=== PATIENT | male | born 1965 | race Caucasian/White ===

== ENCOUNTER 2020-01-11 05:15 | Emergency (ER) | payer BC ==
[~2020-01-11] VITALS: Ht 185.4 cm; Wt 148.2 kg
[2020-01-11] MEDS ORDERED: MEDDOSEPAK PO (05:40)
[2020-01-11 06:36] VITALS: BP 145/70
== END 2020-01-11 06:36 | disposition home or self-care (01) | DRG 916 ==
LOC: ED 05:15
DX: T78.40XA Allergy, unspecified, initial encounter (principal); X58.XXXA Exposure to other specified factors, initial encounter

== ENCOUNTER 2020-01-25 12:25 | Emergency (ER) | payer BC ==
[~2020-01-25] VITALS: Ht 185.4 cm; Wt 145.0 kg
[~2020-01-25 12:25] MED LIST: MEDDOSEPAK PO
[2020-01-25] MEDS ORDERED: EPIPEN 2-P0.3 MG/0.3 SC (13:38)
[2020-01-25] MEDS ORDERED: MEDDOSEPAK PO (13:38)
[2020-01-25] MEDS ORDERED: BENADRYL 50MG C50 MG PO (13:38)
[2020-01-25] MEDS ORDERED: PEPCID20 MG PO (13:38)
[2020-01-25 14:09] VITALS: BP 134/74
== END 2020-01-25 14:05 | disposition home or self-care (01) | DRG 916 ==
LOC: ED 12:25
DX: T78.40XA Allergy, unspecified, initial encounter (principal); F17.200 Nicotine dependence, unspecified, uncomplicated; X58.XXXA Exposure to other specified factors, initial encounter

== ENCOUNTER 2020-01-26 05:42 | Emergency (ER) | payer BC ==
[~2020-01-26] VITALS: Ht 185.4 cm; Wt 145.0 kg
[~2020-01-26 05:42] MED LIST changes: +BENADRYL 50MG C50 MG PO; +EPIPEN 2-P0.3 MG/0.3 SC; +PEPCID20 MG PO
[2020-01-26 07:25] VITALS: BP 135/71
== END 2020-01-26 07:25 | disposition home or self-care (01) | DRG 607 ==
LOC: ED 05:42
DX: L50.0 Allergic urticaria (principal)

== ENCOUNTER 2023-02-27 11:58 | Inpatient (IN) | payer BC ==
[~2023-02-27] VITALS: Ht 185.4 cm; Wt 148.9 kg
[2023-02-27] VITALS (31 sets, daily range): BP systolic 90–140; BP diastolic 32–89
[~2023-02-27 11:58] MED LIST changes: +ALPRAZOLAM ER0.5 MG PO; +ASPIRIN81 MG PO; +HYDRALAZINE10 M2 PO; +LEVOCETIRIZINE D5 MG PO; +MULTIVITAMI9 PO
[2023-02-27 13:20] LABS: ALBUMIN 4.3 g/dL (3.2-5.0); ALKALINE PHOSPHATASE 73 u/l (38-126); ANION GAP 9 (6-22 (CALC)); BILIRUBIN, TOTAL 0.6 mg/dL (0.2-1.3); BUN 18 mg/dL (9-20); BUN/CREATININE RATIO 16 (12-20 (CALC)); CALCULATED LDLCHOLESTEROL 129 mg/dL (62-129 (CALC)); CARBON DIOXIDE 29 mmol/l (22-30); CHLORIDE 107 mmol/l (95-108); CREATININE 1.1 mg/dL (0.7-1.3); GFR FOR AFR.AMER. > 60 ML/MIN (>=60 (CALC)); GFR OTHER RACES > 60 ML/MIN (>=60 (CALC)); HDL CHOLESTEROL 27 mg/dL (39.0-59.0); POTASSIUM 4.3 mmol/l (3.5-5.1); SGOT/AST 32 u/l (17-59); SODIUM 140 mmol/l (137-146); TOTAL CHOLESTEROL 190 mg/dl (0-199); TOTAL PROTEIN 7.1 g/dL (6.3-8.2); TOTAL TRIGLYCERIDES 169 mg/dl (0-149); VLDL CHOLESTROL 34 mg/dl (8-62 (CALC))
[2023-02-27 13:23] LABS: BASO% 0.1 % (0-3); EOS% 1.3 % (0-8); HEMATOCRIT 43.6 % (39.0-50.0); HEMOGLOBIN 14.6 g/dl (14.0-18.0); IMMATURE GRANULOCYTES 0.1 % (0.0-5.0); LYMPH% 22.9 % (15-41); MEAN CELL VOLUME 91.2 fL CALC (80.0-100.0); MEAN CORPUSCULAR HGB 30.5 pG CALC (26.0-32.0); MEAN CORPUSCULAR HGB CONC 33.5 g/dL CAL (32.0-36.0); MONO% 7.5 % (2-13); NEUT# 5.24 thou/uL (1.82-7.42); NEUT% 68.1 % (42-76); RED BLOOD COUNT 4.78 mill/uL (4.70-6.10); RED CELL DISTRI WIDTH 12.3 % (11.5-15.5)
[2023-02-27] MEDS ORDERED: FAMOTIDINE20 M1 PO (14:56)
[2023-02-27 17:34] LABS: URINE BILIRUBIN - DIPSTICK Negative (NEGATIVE); URINE BLOOD DIPSTICK Negative (NEGATIVE); URINE GLUCOSE - DIPSTICK Negative (NEGATIVE); URINE KETONE Negative (NEGATIVE); URINE LEUK ESTERASE Negative (NEGATIVE); URINE NITRITE - DIPSTICK Negative (Negative); URINE PH 5.5 (4.5-8.0); URINE PROTEIN - DIPSTICK Negative (NEG-TRACE); URINE SPECIFIC GRAVITY 1.025; URINE UROBILINOGEN - DIPSTICK 0.2 E.U./dL (0.2)
[2023-02-27 17:35] LABS: URINE COLOR Yellow
[2023-02-28] VITALS (10 sets, daily range): BP systolic 55–123; BP diastolic 30–92
[2023-02-28 06:24] LABS: HEMATOCRIT 40.3 % (39.0-50.0); HEMOGLOBIN 13.4 g/dl (14.0-18.0); MEAN CELL VOLUME 93.5 fL CALC (80.0-100.0); MEAN CORPUSCULAR HGB 31.1 pG CALC (26.0-32.0); MEAN CORPUSCULAR HGB CONC 33.3 g/dL CAL (32.0-36.0); RED BLOOD COUNT 4.31 mill/uL (4.70-6.10); RED CELL DISTRI WIDTH 12.5 % (11.5-15.5)
[2023-02-28 06:42] LABS: ANION GAP 8 (6-22 (CALC)); BUN 16 mg/dL (9-20); BUN/CREATININE RATIO 16 (12-20 (CALC)); CALCULATED LDLCHOLESTEROL 91 mg/dL (62-129 (CALC)); CARBON DIOXIDE 28 mmol/l (22-30); CHLORIDE 106 mmol/l (95-108); CHOLESTEROL HDL RATIO 8.5 (<4.4 (CALC)); GFR FOR AFR.AMER. > 60 ML/MIN (>=60 (CALC)); GFR OTHER RACES > 60 ML/MIN (>=60 (CALC)); HDL CHOLESTEROL 18 mg/dL (39.0-59.0); MAGNESIUM 2.2 mg/dL (1.6-2.3); POTASSIUM 4.4 mmol/l (3.5-5.1); SODIUM 138 mmol/l (137-146); TOTAL CHOLESTEROL 156 mg/dl (0-199); TOTAL TRIGLYCERIDES 232 mg/dl (0-149); VLDL CHOLESTROL 46 mg/dl (8-62 (CALC))
[2023-02-28] MEDS ORDERED: XARELTO20 MG PO (11:07)
[2023-02-28] MEDS ORDERED: TOPROL XL25 M1 PO (11:13)
== END 2023-02-28 14:50 | disposition home or self-care (01) | DRG 309 ==
LOC: ED 11:58 → ED-I 12:53 → ED 15:54 → ICU 15:55
PROVIDERS: Nurse Practitioner; ADMIT Student in an Organized Health Care Education/Training Program; ATTEND Student in an Organized Health Care Education/Training Program
DX: I48.91 Unspecified atrial fibrillation (principal); G45.9 Transient cerebral ischemic attack, unspecified; I10 Essential (primary) hypertension; G47.33 Obstructive sleep apnea (adult) (pediatric); E66.9 Obesity, unspecified; Z79.82 Long term (current) use of aspirin
CPT/HCPCS: J1650; J2060

== ENCOUNTER 2023-03-03 10:52 | Emergency (ER) | payer BC ==
[2023-03-03] VITALS (8 sets, daily range): BP systolic 116–140; BP diastolic 62–124
[~2023-03-03] VITALS: Ht 185.4 cm; Wt 147.4 kg
[~2023-03-03 10:52] MED LIST changes: +FAMOTIDINE20 M1 PO; +TOPROL XL25 M1 PO; +XARELTO20 MG PO
[2023-03-03] MEDS ORDERED: XANAX0.5 MG PO (11:13)
[2023-03-03] MEDS ORDERED: HYDROXYZ HCL25 MG PO (11:13)
[2023-03-03 12:23] LABS: BASO% 0.2 % (0-3); EOS% 1.8 % (0-8); HEMATOCRIT 43.5 % (39.0-50.0); HEMOGLOBIN 14.5 g/dl (14.0-18.0); IMMATURE GRANULOCYTES 0.1 % (0.0-5.0); LYMPH% 20.7 % (15-41); MEAN CELL VOLUME 91.2 fL CALC (80.0-100.0); MEAN CORPUSCULAR HGB 30.4 pG CALC (26.0-32.0); MEAN CORPUSCULAR HGB CONC 33.3 g/dL CAL (32.0-36.0); MONO% 7.1 % (2-13); NEUT# 5.93 thou/uL (1.82-7.42); NEUT% 70.1 % (42-76); RED BLOOD COUNT 4.77 mill/uL (4.70-6.10); RED CELL DISTRI WIDTH 12.3 % (11.5-15.5)
[2023-03-03 12:27] LABS: INTERNATIONAL NORMALIZED RATIO 1.2 RATIO (0.7-1.3); PROTHROMBIN TIME 11.3 SECONDS (9.0-12.5)
[2023-03-03 12:29] LABS: ALBUMIN 4.1 g/dL (3.2-5.0); ALKALINE PHOSPHATASE 66 u/l (38-126); ANION GAP 9 (6-22 (CALC)); BILIRUBIN, TOTAL 0.6 mg/dL (0.2-1.3); BUN 15 mg/dL (9-20); BUN/CREATININE RATIO 14 (12-20 (CALC)); CARBON DIOXIDE 29 mmol/l (22-30); CHLORIDE 107 mmol/l (95-108); CREATININE 1.1 mg/dL (0.7-1.3); GFR FOR AFR.AMER. > 60 ML/MIN (>=60 (CALC)); GFR OTHER RACES > 60 ML/MIN (>=60 (CALC)); POTASSIUM 4.3 mmol/l (3.5-5.1); SGOT/AST 36 u/l (17-59); SODIUM 140 mmol/l (137-146); TOTAL PROTEIN 7.3 g/dL (6.3-8.2)
[2023-03-03 13:40] LABS: URINE BILIRUBIN - DIPSTICK Negative (NEGATIVE); URINE BLOOD DIPSTICK Negative (NEGATIVE); URINE COLOR Yellow; URINE GLUCOSE - DIPSTICK Negative (NEGATIVE); URINE KETONE Negative (NEGATIVE); URINE LEUK ESTERASE Negative (NEGATIVE); URINE NITRITE - DIPSTICK Negative (Negative); URINE PH 5.5 (4.5-8.0); URINE PROTEIN - DIPSTICK Negative (NEG-TRACE); URINE UROBILINOGEN - DIPSTICK 0.2 E.U./dL (0.2)
== END 2023-03-03 14:41 | disposition home or self-care (01) | DRG 149 ==
LOC: ED 10:52
PROVIDERS: Nurse Practitioner
DX: R42 Dizziness and giddiness (principal); I10 Essential (primary) hypertension; I48.91 Unspecified atrial fibrillation; Z86.73 Personal history of transient ischemic attack (TIA), and cerebral infarction without residual deficits; Z79.01 Long term (current) use of anticoagulants

== ENCOUNTER 2023-03-12 06:31 | Emergency (ER) | payer BC ==
[~2023-03-12] VITALS: Ht 185.4 cm; Wt 147.0 kg
[~2023-03-12 06:31] MED LIST changes: +HYDROXYZ HCL25 MG PO; +XANAX0.5 MG PO
[2023-03-12 06:42] VITALS: BP 129/96
[2023-03-12 07:11] LABS: BASO% 0.1 % (0-3); EOS% 1.4 % (0-8); HEMATOCRIT 45.1 % (39.0-50.0); IMMATURE GRANULOCYTES 0.1 % (0.0-5.0); LYMPH% 23.4 % (15-41); MEAN CELL VOLUME 92.2 fL CALC (80.0-100.0); MEAN CORPUSCULAR HGB 30.7 pG CALC (26.0-32.0); MEAN CORPUSCULAR HGB CONC 33.3 g/dL CAL (32.0-36.0); MONO% 8.1 % (2-13); NEUT# 4.93 thou/uL (1.82-7.42); NEUT% 66.9 % (42-76); RED BLOOD COUNT 4.89 mill/uL (4.70-6.10); RED CELL DISTRI WIDTH 12.2 % (11.5-15.5)
[2023-03-12 07:28] VITALS: BP 124/68
[2023-03-12 07:33] LABS: ALBUMIN 4.3 g/dL (3.2-5.0); ALKALINE PHOSPHATASE 70 u/l (38-126); ANION GAP 13 (6-22 (CALC)); BUN 22 mg/dL (9-20); BUN/CREATININE RATIO 19 (12-20 (CALC)); CARBON DIOXIDE 26 mmol/l (22-30); CHLORIDE 104 mmol/l (95-108); CREATININE 1.2 mg/dL (0.7-1.3); GFR FOR AFR.AMER. > 60 ML/MIN (>=60 (CALC)); GFR OTHER RACES > 60 ML/MIN (>=60 (CALC)); POTASSIUM 4.1 mmol/l (3.5-5.1); SGOT/AST 33 u/l (17-59); SODIUM 140 mmol/l (137-146); TOTAL PROTEIN 7.7 g/dL (6.3-8.2)
[2023-03-12 08:01] VITALS: BP 114/69
[2023-03-12 08:27] VITALS: BP 114/69
[2023-03-12] MEDS ORDERED: TOPROL XL25 M1 PO ×2 (08:35→08:37)
== END 2023-03-12 08:56 | disposition home or self-care (01) | DRG 310 ==
LOC: ED 06:31
PROVIDERS: Family Medicine
DX: I48.92 Unspecified atrial flutter (principal); I10 Essential (primary) hypertension; I48.91 Unspecified atrial fibrillation; G47.33 Obstructive sleep apnea (adult) (pediatric); Z79.01 Long term (current) use of anticoagulants

== ENCOUNTER 2024-03-09 21:29 | Observation (INO) | payer BC ==
[~2024-03-09] VITALS: Ht 185.4 cm; Wt 133.1 kg
[2024-03-09 21:54] VITALS: BP 151/82
[2024-03-09 22:18] LABS: BASO% 0.2 % (0-3); EOS% 1.3 % (0-8); HEMATOCRIT 45.9 % (39.0-50.0); HEMOGLOBIN 15.4 g/dl (14.0-18.0); IMMATURE GRANULOCYTES 0.1 % (0.0-5.0); LYMPH% 21.9 % (15-41); MEAN CELL VOLUME 91.4 fL CALC (80.0-100.0); MEAN CORPUSCULAR HGB 30.7 pG CALC (26.0-32.0); MEAN CORPUSCULAR HGB CONC 33.6 g/dL CAL (32.0-36.0); MONO% 8.7 % (2-13); NEUT# 6.9 thou/uL (1.82-7.42); NEUT% 67.8 % (42-76); RED BLOOD COUNT 5.02 mill/uL (4.70-6.10); RED CELL DISTRI WIDTH 11.9 % (11.5-15.5)
[2024-03-09 22:31] LABS: ALBUMIN 4.6 g/dL (3.2-5.0); ALKALINE PHOSPHATASE 71 u/l (38-126); ANION GAP 11 (6-22 (CALC)); BILIRUBIN, TOTAL 0.5 mg/dL (0.2-1.3); BUN 26 mg/dL (9-20); BUN/CREATININE RATIO 23 (12-20 (CALC)); CALCULATED LDLCHOLESTEROL 73 mg/dL (62-129 (CALC)); CARBON DIOXIDE 26 mmol/l (22-30); CHLORIDE 110 mmol/l (95-108); CHOLESTEROL HDL RATIO 4.4 (<4.4 (CALC)); CREATININE 1.1 mg/dL (0.7-1.3); ESTIMATED GFR 78 ML/MIN (>=90 (CALC)); HDL CHOLESTEROL 32 mg/dL (39.0-59.0); POTASSIUM 4.1 mmol/l (3.5-5.1); SGOT/AST 28 u/l (17-59); SODIUM 143 mmol/l (137-146); TOTAL CHOLESTEROL 141 mg/dl (0-199); TOTAL PROTEIN 7.6 g/dL (6.3-8.2); TOTAL TRIGLYCERIDES 181 mg/dl (0-149); VLDL CHOLESTROL 36 mg/dl (8-62 (CALC))
[2024-03-09 22:34] LABS: INTERNATIONAL NORMALIZED RATIO 1.1 RATIO (0.7-1.3)
[2024-03-09 22:41] LABS: PROTHROMBIN TIME 10.5 SECONDS (9.0-12.5)
[2024-03-09 22:49] VITALS: BP 144/78
[2024-03-09] MEDS ORDERED: LEVOTHYROXIN200 MCG PO (22:55)
[2024-03-09] MEDS ORDERED: TIZANIDINE4 MG PO (22:57)
[2024-03-09] MEDS ORDERED: ROSUVASTATIN CA10 MG PO (22:57)
[2024-03-09] MEDS ORDERED: LORTAB 5/3255 MG PO (22:58)
[2024-03-09 23:01] VITALS: BP 134/77
[2024-03-09] MEDS ORDERED: PROMETHAZINE HCL 25 MG/ML AMP IV ONE (23:05)
[2024-03-09] MEDS ORDERED: MECLIZINE HCL 25 MG/TAB PO ONE (23:05)
[2024-03-09] MEDS ORDERED: SODIUM CHLORIDE 0.9% 1,000 ML IV ONE (23:05)
[2024-03-09 23:52] VITALS: BP 132/74
[2024-03-10] MEDS ORDERED: ONDANSETRON HCl 4 MG/2 ML SDV IV PRN (00:30)
[2024-03-10] MEDS ORDERED: FAMOTIDINE 10MG/ML 2ML SDV IV PRN ×2 (00:30→01:15)
[2024-03-10] MEDS ORDERED: IBUPROFEN 800 MG/TAB PO PRN (00:30)
[2024-03-10] MEDS ORDERED: ONDANSETRON 4 MG/TAB ODT PO PRN (00:30)
[2024-03-10] MEDS ORDERED: Polyethylene Glycol 3350 17 GM/PKT PO PRN (00:30)
[2024-03-10] MEDS ORDERED: ALUM & MAG HYDROX-SIMETHICONE 30 ML PO PRN ×2 (00:30→01:10)
[2024-03-10 00:31] VITALS: BP 127/69
[2024-03-10 00:37] LABS: URINE BILIRUBIN - DIPSTICK Negative (NEGATIVE); URINE BLOOD DIPSTICK Negative (NEGATIVE); URINE GLUCOSE - DIPSTICK Negative (NEGATIVE); URINE KETONE Negative (NEGATIVE); URINE LEUK ESTERASE Negative (NEGATIVE); URINE NITRITE - DIPSTICK Negative (Negative); URINE PROTEIN - DIPSTICK Negative (NEG-TRACE); URINE UROBILINOGEN - DIPSTICK 0.2 E.U./dL (0.2)
[2024-03-10 00:41] LABS: URINE COLOR Yellow
[2024-03-10 01:01] VITALS: BP 150/77
[2024-03-10 01:22] VITALS: BP 144/78
[2024-03-10 04:15] VITALS: BP 131/64
[2024-03-10] MEDS ORDERED: ACETAMINOPHEN 325 MG/TAB PO PRN (06:40)
[2024-03-10] MEDS ORDERED: MAGNESIUM HYDROXIDE 30 ML UDC PO PRN (06:40)
[2024-03-10] MEDS ORDERED: SODIUM CHLORIDE 0.9% 1,000 ML IV PRN (06:45)
[2024-03-10] MEDS ORDERED: MECLIZINE HCL 25 MG/TAB PO PRN (06:45)
[2024-03-10] MEDS ORDERED: ENALAPRILAT 1.25 MG/ML 1ML IV PRN (06:55)
[2024-03-10 08:07] VITALS: BP 145/80
[2024-03-10] MEDS ORDERED: FAMOTIDINE 20 MG/TAB PO SCH (09:00)
[2024-03-10] MEDS ORDERED: ASPIRIN 81 MG/TAB PO SCH ×3 (09:00)
[2024-03-10] MEDS ORDERED: ALPRAZolam 0.5 MG/TAB PO SCH (10:30)
[2024-03-10 11:21] VITALS: BP 146/80
[2024-03-10] MEDS ORDERED: MECLIZINE HCL 25 MG/TAB PO SCH (15:00)
[2024-03-10] MEDS ORDERED: MECLIZINE25 M2 PO (17:21)
[2024-03-10] MEDS ORDERED: hydrOXYzine HCL 25 MG/TAB PO SCH (21:00)
[2024-03-10] MEDS ORDERED: ATORVASTATIN CALCIUM 40 MG/TAB PO SCH (21:00)
[2024-03-11] MEDS ORDERED: LEVOTHYROXINE SODIUM 25 MCG/TAB PO SCH (06:00)
== END 2024-03-10 18:30 | disposition home or self-care (01) | DRG 149 ==
LOC: ED 21:29 → ED-I 03-10 00:05 → ED 03-10 00:34 → MS2 03-10 00:35
PROVIDERS: Family Medicine; ADMIT Student in an Organized Health Care Education/Training Program; ATTEND Student in an Organized Health Care Education/Training Program
DX: R42 Dizziness and giddiness (principal); H93.11 Tinnitus, right ear; I10 Essential (primary) hypertension; I48.91 Unspecified atrial fibrillation; E03.9 Hypothyroidism, unspecified; G47.33 Obstructive sleep apnea (adult) (pediatric); E78.5 Hyperlipidemia, unspecified; F41.9 Anxiety disorder, unspecified; K21.9 Gastro-esophageal reflux disease without esophagitis; Z86.73 Personal history of transient ischemic attack (TIA), and cerebral infarction without residual deficits; Z79.01 Long term (current) use of anticoagulants; Z87.891 Personal history of nicotine dependence
CPT/HCPCS: G0378; Q9967